=== PATIENT | male | born 1975 ===

== ENCOUNTER 2024-03-08 06:45 | Emergency (ER) | payer SELFPAY ==
[~2024-03-08] VITALS: Ht 157.5 cm; Wt 73.0 kg
[2024-03-08 06:54] VITALS: TEMP 97.9
[2024-03-08] MEDS ORDERED: diphenhydrAMINE 50 MG/ML 1 ML VIAL IV ONE (07:15)
[2024-03-08] MEDS ORDERED: NS 1,000 ML IV ONE (07:15)
[2024-03-08] MEDS ORDERED: Acetaminophen 500 MG TAB PO ONE (07:15)
[2024-03-08 07:32] LABS: BASO % 0.5 % (0.0-2.0); EOS # 0.2 K/mm3 (0.0-0.7); EOS % 2.6 % (0.0-4.0); GRAN # 3.5 K/mm3 (1.4-6.5); GRAN % 40.3 % (42.2-75.2); HEMATOCRIT 43.6 % (42.0-52.0); HEMOGLOBIN 13.7 g/dl (13.5-18.0); LYMPH # 3.9 K/mm3 (1.2-3.4); LYMPH % 45.5 % (20.0-51.0); MEAN CELL VOLUME 82 fl (80.0-100.0); MEAN CORPUSCULAR HEMOGLOBIN 26 pg (27-31); MEAN CORPUSCULAR HGB CONC 31 g/dl (33.0-37.0); MEAN PLATELET VOLUME 9.5 fl (7.4-10.4); MONO # 0.9 K/mm3 (0.1-0.6); MONO % 10.8 % (1.7-9.3); PLATELET COUNT 273 K/mm3 (130-400); RED BLOOD COUNT 5.32 M/mm3 (4.20-5.60); REDCELL DISTRIBUTION WIDTH-CV 13.9 % (11.5-14.5)
[2024-03-08 08:19] LABS: ALANINE AMINOTRANSFERASE 51 U/L (0-55); ALBUMIN 3.7 g/dL (3.5-5.0); ALKALINE PHOSPHATASE 75 U/L (40-150); ANION GAP 10 mmol/L (7-16); AST,SGOT 31 U/L (5-34); BILIRUBIN,TOTAL 0.2 mg/dL (0.2-1.2); BLOOD UREA NITROGEN 22 mg/dL (9-21); CALCIUM 9.6 mg/dL (8.4-10.2); CHLORIDE 110 mEq/L (98-107); CREATININE, serum 0.77 mg/dL (0.72-1.25); GLUCOSE 182 mg/dL (70-99); SODIUM 140 mEq/L (136-145); TOTAL PROTEIN 7.2 g/dl (6.2-8.1)
[2024-03-08 08:29] LABS: TROPONIN-I < 0.010 ng/mL (0.00-0.033)
[2024-03-08] MEDS ORDERED: Gadoterate 15 ML VIAL IV ONE (14:18)
[2024-03-08 16:18] VITALS: BP 127/85; PULSE 66
== END 2024-03-08 16:18 | disposition home or self-care (01) ==
LOC: COL.ER 06:45
PROVIDERS: Emergency Medicine
DX: D35.2 Benign neoplasm of pituitary gland (principal); F17.200 Nicotine dependence, unspecified, uncomplicated
CPT/HCPCS: A9575; J1200; J2765; J7030